=== PATIENT | female | born 1990 | race Caucasian/White ===

== ENCOUNTER 2016-09-01 13:23 | Observation (INO) | payer SELFPAY ==
[2016-09-01] MEDS ORDERED: NS 0.9% 1000 ML* 1,000 ML IV ONE (14:26)
[2016-09-01 14:46] LABS: Hematocrit 42 % (35-47); Hemoglobin 13.6 g/dl (12.0-16.0); Mean Corpuscular HGB Conc 33 g/dl (31-36); Mean Corpuscular Hemoglobin 32 pg (27-31); Mean Corpuscular Volume 98 fL (80-97); Mean Platelet Volume 8 um3 (7.4-10.4); Red Blood Count 4.27 10^6/ul (4.0-5.4); Red Cell Distribution Width 13 % (10.5-15); White Blood Count 7.8 10^3/ul (3.5-10.8)
[2016-09-01 15:05] LABS: Anion Gap 7 mmol/L (2-11); BUN/Creatinine Ratio 17.3 (8-20); Blood Urea Nitrogen 19 mg/dL (6-24); CO2 Carbon Dioxide 26 mmol/L (22-32); Chloride 104 mmol/L (101-111); EGFR Non-African American 59.6 (>60); Glucose 100 mg/dL (70-100); Potassium 3.9 mmol/L (3.5-5.0); Sodium 137 mmol/L (133-145)
[2016-09-01 15:06] LABS: ALT 13 U/L (7-52); AST 20 U/L (13-39); Albumin 4.3 g/dL (3.2-5.2); Alkaline Phosphatase 35 U/L (34-104); Calcium 9.5 mg/dL (8.6-10.3); EGFR African American 76.6 (>60); Globulin 2.9 g/dL (2-4); Magnesium 2.1 mg/dL (1.9-2.7); Total Protein 7.2 g/dL (6.4-8.9)
[2016-09-01 15:21] LABS: TSH (Thyroid Stimulating Horm) 1.97 mcIU/mL (0.34-5.60)
--- NOTE | 2016-09-01 16:52 | RAD ---
Indication: Headaches and dizziness. Image sequences: Sagittal and axial T1, axial T2, FLAIR, diffusion and susceptibility weighted images of the brain were obtained. Ventricular structures are midline. No midline shift is noted. The extra-axial spaces are unremarkable. There is no evidence of intracranial mass or hemorrhage. No other high or low signal lesions are identified. Diffusion-weighted images demonstrates no restriction of diffusion. The paranasal sinuses are otherwise unremarkable. On the T1 and T2 FLAIR images there is increased signal in the right transverse sinus. This is consistent with thrombosis of the right transverse sinus. Normal flow voids are noted in the left transverse sinus as well as the sagittal sinus. Paranasal sinuses are otherwise unremarkable. IMPRESSION: Increased signal is noted in the right transverse sinus consistent with thrombosis of the right transverse sinus. No intracranial lesion is otherwise identified.
[2016-09-01] MEDS ORDERED: Ondansetron INJ* 2 MG/ML VIAL IV PRN (17:29)
[2016-09-01] MEDS ORDERED: Acetaminophen TAB* 325 MG PO PRN (17:29)
[2016-09-01] MEDS ORDERED: NS 0.9% 1000 ML* 1,000 ML IV SCH (17:30)
[2016-09-01] MEDS ORDERED: Iodixanol* (CONTRAST) 320 MG/ML 100 ML SDV IV ONE (17:31)
[2016-09-01] MEDS: Enoxaparin(*) 80 MG/0.8 ML SYR SUBCUT SCH (17:38)
--- NOTE | 2016-09-01 17:40 | ED ---
Dionne Rodriguez Alok, scribed for Soledad Cruz MD on 09/01/16 at 1432 . Headache - HPI Summary HPI Summary: 26F presents to the ED for ESTEVEZ accompanied by dizziness. Pt states that 2 weeks ago she felt a severe temporal ESTEVEZ constant for 2 days before growing milder. She then states she began to feel dizziness like a room-spinning sensation constantly for the week before improving. Pt states her dizziness did not worsen with any behavior and improved with movement. Pt notes taking a muscle relaxer one week ago to try and alleviate her ESTEVEZ. Pt also notes a period of left arm weakness yesterday which felt like muscle strain lasting 10 hours. Pt states that her ESTEVEZ was accompanied by neck pain and that her dizziness was accompanied by ear fullness. Pt denies diplopia, dysphagia, expressive aphasia, or numbness. Pt denies fever, nausea or vomiting. Pt takes BCP. - History Of Current Complaint Chief Complaint: EDHeadache Stated Complaint: HEADACHE,DIZZINESS Time Seen by Provider: 09/01/16 14:02 Hx Obtained From: Patient Onset/Duration: Started weeks ago, Resolved Initially Headache Was: Moderate Currently Pain Is: Mild Timing: Constant Location of Headache: Temporal Radiates to: Neck Aggravating Factor: Nothing Allevating Factors: Other (Noted In Comments) - Movement Associated Signs And Symptoms: Dizziness, Neck Pain - Allergies/Home Medications Allergies/Adverse Reactions: Allergies Allergy/AdvReac Type Severity Reaction Status Date / Time No Known Allergies Allergy Verified 09/01/16 14:08 Home Medications: Home Medications NK [No Home Medications Reported] 09/01/16 [History Confirmed 09/01/16] PMH/Surg Hx/FS Hx/Imm Hx Endocrine/Hematology History: Denies: Hx Diabetes Cardiovascular History: Denies: Hx Hypertension Infectious Disease History: No Infectious Disease History: Denies: Traveled Outside the [place] in Last 30 Days - Family History Known Family History: Positive: Other - No - aneurysm - Social History Occupation: Student Alcohol Use: None Substance Use Type: Reports: None Smoking Status (MU): Never Smoked Tobacco Review of Systems Negative: Fever Negative: Diplopia Positive: Other - ear fullness Negative: Vomiting, Nausea Neurological: Other - Dizziness Positive: Headache. Negative: Numbness, Slurred Speech All Other Systems Reviewed And Are Negative: Yes Physical Exam Triage Information Reviewed: Yes Vital Signs On Initial Exam: Initial Vitals Temp Pulse Resp BP Pulse Ox 99.1 F 70 18 130/90 100 09/01/16 13:47 09/01/16 13:47 09/01/16 13:47 09/01/16 13:47 09/01/16 13:47 Vital Signs Reviewed: Yes Appearance: Positive: Well-Appearing, No Pain Distress Skin: Positive: Warm, Skin Color Reflects Adequate Perfusion, Dry Eyes: Positive: EOMI, PA ENT: Positive: Pharynx normal, TMs normal Neck: Positive: Supple, Nontender Respiratory/Lung Sounds: Positive: Clear to Auscultation, Breath Sounds Present. Negative: Rales, Rhonchi, Wheezes Cardiovascular: Positive: RRR, Other - no gallop. Negative: Murmur, Rub Abdomen Description: Positive: Nontender, Soft, Other: - no rebound. Negative: Distended, Guarding Bowel Sounds: Positive: Present Musculoskeletal: Positive: Strength/ROM Intact. Negative: Edema Left, Edema Right Neurological: Positive: Sensory/Motor Intact, Alert, Oriented to Person Place, Time, CN Intact II-III, Other - NIH Stroke Scale - 0 Psychiatric: Positive: Affect/Mood Appropriate - Neptune Coma Scale Coma Scale Total: 15 Diagnostics - Vital Signs Vital Signs Temp Pulse Resp BP Pulse Ox 09/01/16 14:07 73 99 09/01/16 14:06 99.1 F 70 18 140/94 100 09/01/16 13:47 99.1 F 70 18 130/90 100 - Laboratory Lab Results: Lab Results 09/01/16 09/01/16 09/01/16 Range/Units 14:35 14:35 14:35 WBC 7.8 (3.5-10.8) 10^3/ul RBC 4.27 (4.0-5.4) 10^6/ul Hgb 13.6 (12.0-16.0) g/dl Hct 42 (35-47) % MCV 98 H (80-97) fL MCH 32 H (27-31) pg MCHC 33 (31-36) g/dl RDW 13 (10.5-15) % Plt Count 243 (150-450) 10^3/ul MPV 8 (7.4-10.4) um3 Neut % (Auto) 63.4 (38-83) % Lymph % (Auto) 29.0 (25-47) % [place] % (Auto) 5.9 (1-9) % Eos % (Auto) 0.9 (0-6) % Baso % (Auto) 0.8 (0-2) % Absolute Neuts (auto) 4.9 (1.5-7.7) 10^3/ul Absolute Lymphs (auto) 2.3 (1.0-4.8) 10^3/ul Absolute Monos (auto) 0.5 (0-0.8) 10^3/ul Absolute Eos (auto) 0.1 (0-0.6) 10^3/ul Absolute Basos (auto) 0.1 (0-0.2) 10^3/ul Absolute Nucleated RBC 0.01 10^3/ul Nucleated RBC % 0.1 Sodium 137 (133-145) mmol/L Potassium 3.9 (3.5-5.0) mmol/L Chloride 104 (101-111) mmol/L Carbon Dioxide 26 (22-32) mmol/L Anion Gap 7 (2-11) mmol/L BUN 19 (6-24) mg/dL Creatinine 1.10 H (0.51-0.95) mg/dL Est GFR ( Amer) 76.6 (>60) Est GFR (Non-Af Amer) 59.6 (>60) BUN/Creatinine Ratio 17.3 (8-20) Glucose 100 (70-100) mg/dL Lactic Acid 0.7 (0.5-2.0) mmol/L Calcium 9.5 (8.6-10.3) mg/dL Magnesium 2.1 (1.9-2.7) mg/dL Total Bilirubin 0.50 (0.2-1.0) mg/dL AST 20 (13-39) U/L ALT 13 (7-52) U/L Alkaline Phosphatase 35 (34-104) U/L Troponin I 0.00 (<0.04) ng/mL Total Protein 7.2 (6.4-8.9) g/dL Albumin 4.3 (3.2-5.2) g/dL Globulin 2.9 (2-4) g/dL Albumin/Globulin Ratio 1.5 (1-3) TSH 1.97 (0.34-5.60) mcIU/mL Beta HCG, Quant < 0.60 mIU/mL Result Diagrams: 09/01/16 14:35 09/01/16 14:35 Lab Statement: Any lab studies that have been ordered have been reviewed, and results considered in the medical decision making process. - Radiology Brain MRI Xray Interpretation: Positive (See Comments) - IMPRESSION: Increased signal is noted in the right transverse sinus consistent with thrombosis of the right transverse sinus. No intracranial lesion is otherwise identified. Radiology Interpretation Completed By: Radiologist - EKG 1431 Cardiac Rate: NL - 66 bpm EKG Rhythm: Sinus Rhythm Headache Course/Dx - Course Assessment/Plan: Discussed patient care with Dr. Paiz and Dr. Dunlap ( Hospitalist) @ 0305 - [place] [facility] Pt does not have intact primary care coverage, translation phone being brought down for both the specialist and the admitting doc to discuss better the etiology of the diagnosis. - Diagnoses Provider Diagnoses: Cerebral venous sinus thrombosis, acute - Physician Notifications Discussed Care Of Patient With: Nati Yeh - Recommends MRI Time Discussed With Above Provider: 14:32 Discharge - Discharge Plan Condition: Stable Disposition: ADMITTED TO [facility] Referrals: No Primary Care Phys,NOPCP [Primary Care Provider] - The documentation as recorded by the Dionne stratton Alok accurately reflects the service I personally performed and the decisions made by me, Soledad Cruz MD.
[2016-09-01] MEDS ORDERED: Cyclobenzaprine TAB* 10 MG PO PRN (18:16)
--- NOTE | 2016-09-01 20:22 | RAD ---
Indication: Evaluate for recanalization of transverse sinus thrombosis. Contrast: Administered 59.8 ml of VISAPAQUE 320 mgi/ml CT venography was performed in the axial plane. Coronal, sagittal and 3-D reconstructive images were obtained. The sagittal sinus is patent. No filling defect is noted. The straight sinus and vein of Francisco are also patent. The left transverse sinus is patent and is unremarkable. There is a filling defect in the right transverse sinus consistent with thrombosis of the right transverse sinus extending from the torcula to the proximal internal jugular vein. A small amount of peripheral flow is noted. IMPRESSION: FILLING DEFECT IN THE RIGHT TRANSVERSE SINUS EXTENDING TO THE RIGHT PROXIMAL INTERNAL JUGULAR VEIN WITH PERIPHERAL FLOW NOTED.
--- NOTE | 2016-09-01 23:55 | HP ---
CC: [facility] * ADMISSION HISTORY AND PHYSICAL: DATE OF ADMISSION: 09/01/16 PRIMARY CARE PROVIDER: [facility] PROVIDER: Beto Ruiz NP ATTENDING PHYSICIAN: Dr. Andi Dunlap * (as dictated by Beto Ruiz NP) . CONSULTING PHYSICIAN: Dr. Krupa Paiz, Neurology. CHIEF COMPLAINT: Headache. 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 The patient states that approximately 2 weeks ago, the headache started and she remembers 2 distinct episodes. The headaches last for approximately 20 minutes each time and are described as a pressure "on my head." After the headaches, she reports some dizziness, which she describes as the room spinning. She also reports some accompanying tense neck muscles. These continued over the past week, though not as strong as the initial headache, each time lasting for about 20 to 30 minutes with no identifying pattern or triggers. She has been treating her headache with a medication she brought [id number] in [place] called Dipirona, which she states did help with the severity of her headache. She has also been taking a medication that has a combination of diclofenac, paracetamol , carisoprodol, and caffeine, also bought [id number] in [place]. She denies any double vision, no changes to her vision. She denies any recent fevers or chills, cold or flu symptoms. She denies any chest pain, palpitations , shortness of breath, or cough. She denies abdominal pain, nausea, vomiting, diarrhea, or dysuria. She does report some ear fullness, mostly on the right. The patient has no previous history of headaches expect for 10 years ago when she states that she had been diagnosed with astigmatism, which resolved when she started wearing glasses. She has no previous history of blood clots. She has one family member who may have had a blood clot in her leg. She denies ever being . PAST MEDICAL HISTORY: The patient denies. MEDICATIONS: Ndar-eru-oyqchug Dipirona and over the counter medications as previously mentioned. The patient also takes an oral contraceptive that she has been taking for 6 years. ALLERGIES: No known allergies. FAMILY HISTORY: She reports her grandmother who had a history of a blood clot in her leg "when she got older," age unknown. SOCIAL HISTORY: The patient denies any tobacco, alcohol, or illicit drug use. She states that she exercises daily and lifts weights. 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 She is here from [place] and has been here since May and will be here over the next year. 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 She has a friend, Cullen, who is her emergency contact and surrogate decision maker. Cullen can be reached at [phone]. REVIEW OF SYSTEMS: As per HPI. PHYSICAL EXAMINATION GENERAL: Ms. Swann is a young, well-appearing, well-developed, well-nourished female who is sitting up in the ED stretcher, in no acute distress. VITAL SIGNS: Temperature 99.1, heart rate 66, respiratory rate 16, blood pressure 139/86, and O2 saturation is 100% on room air. HEENT: Head is atraumatic and normocephalic. Face is symmetrical. Pupils are equal, round, and reactive to light. Sclerae are anicteric. External ears and nose are normal. Oral mucosa appears moist. NECK: Supple. Has full range of motion. No lymphadenopathy appreciated. No carotid bruits auscultated. RESPIRATORY: Lungs are clear to auscultation. No accessory muscle use is noted. CARDIAC: S1, S2 heart sounds. Regular rate and rhythm. No murmurs, rubs, or gallops. The patient does not have any peripheral edema. Distal pulses are 2+. ABDOMEN: Soft, nontender, nondistended. Bowel sounds present in all 4 quadrants. MUSCULOSKELETAL: The patient has no clubbing or cyanosis. She has full range of motion. SKIN: Appears grossly intact. NEUROLOGIC: Cranial nerves II through XII are intact. The patient is able to move all extremities. No focal weakness or deficits noted. Strength and pillowcase folder are equal bilaterally. Sensation is intact to light touch and pinprick to the upper and lower extremities. No pronator drift is noted. The patient is able to perform rapid hand motions. [id number]-gp-[id number] and jefp-rk-jqqo activity is within normal limits. PSYCH: She is alert and oriented x3. Affect is appropriate. DIAGNOSTIC STUDIES/LAB DATA: CBC: WBC 7.8, hemoglobin 13.6, hematocrit 42, platelet count 243. CMP: Sodium 137, potassium 3.9, chloride 104, carbon dioxide 26, BUN 19, creatinine 1.10, glucose 100, lactic acid 0.7, calcium 9.5. Magnesium 2.1. Total bilirubin 0.5, AST 20, ALT 13, alk phos 35. Troponin 0.00. Total protein 7.2. TSH 1.97. Beta-hCG is negative. The patient's MRI of the brain showed concern for increased signal is noted in the right transverse sinus consistent with thrombosis of the right transverse sinus. No intracranial lesion is otherwise identified. ASSESSMENT AND PLAN: Ms. Swann is a 26-year-old female with a history of oral contraceptive use x6 years, who presents today with concern for a right transverse sinus thrombosis. She will be admitted to the medicine floor. Plan is as follows: 1. Right transverse sinus thrombosis. The patient has been seen in consultation by Neurology. She is also going to undergo a CTA with venous phase , which is pending. She will be started on b.i.d. Lovenox, which she will most likely have to continue as an outpatient. Other options may include warfarin; however, it may be beneficial to touch base with Hematology to see if there are other agents that might be useful for the patient, otherwise, she may have to continue on Lovenox. We will continue neurological checks and keep the patient well hydrated. The patient has been advised to stop her oral contraceptives as this may have likely caused the clot that is seen on her MRI. There was also concern for potential hypercoagulability in the patient's family history. We will send for a hypercoagulable workup per Neurology. We will continue p.r.n. pain medications of acetaminophen and Flexeril as well as Percocet for the patient for her headache. Continue to monitor her progress. 2. Acute kidney injury. Suspect dehydration. The patient does have a mildly elevated creatinine. The patient does state that she drinks about a liter of caffeine a day and we have advised her that she needs to decrease her caffeine use. She has actually been advised to stop using caffeine, but at the very least, to decrease it down to at least 1 cup a day. She also reports not drinking a variety of balanced fluids besides coffee and caffeinated beverages. We will hydrate her with IV normal saline and follow her creatinine in the morning. 3. Macrocytosis. The patient's H and H is stable. She has mild macrocytosis. We can check a B12 and folate in the morning. 4. FEN. The patient is ordered a regular diet. No caffeine and IV normal saline. 5. DVT prophylaxis. The patient will be fully anticoagulated with b.i.d. Lovenox. 6. Code status. She is a full code. TIME SPENT: Time spent on this admission was approximately 70 minutes, more than half the time was spent [id number] with the patient obtaining history and physical, performing the physical examination, and reviewing the plan of care. Plan of care was also reviewed with my attending, Dr. Dunlap, who is in agreement. [employer] iPad was used via full time staff interpreter number [id number] to assist with this H and P. BETO RUIZ, POST DOCTORAL RESEARCHER [id number]/CPS #: [id number] MAKAYLA
--- NOTE | 2016-09-02 00:03 | CONS ---
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 Una originally started having severe headache, rated 10/ 10 about 10 days ago. This was followed by a week of vertigo, which has improved. She still has a feeling of pinching around the nose and around the mormon region. This occurs while on control. She also enjoys coffee and drinks about a liter of coffee a day. She had been taking a medication, which also has anti-inflammatory as well as caffeine. She has noted that her right ear has felt gastelum than the left. She is presenting to the emergency room for further evaluation. With this constellation of symptoms, she went on to have an MRI of the brain, which showed right transverse sinus thrombosis. PAST MEDICAL HISTORY: Una's past medical history is minimal. She has no clear medical diagnosis. She is not . She is on control. She has had difficulty with headache about 10 years ago in the setting of difficulty with visual accommodation. MEDICATIONS: Includes control; a combination pill that she has been taking p.r.n. of paracetamol, caffeine, carisoprodol and diclofenac. She has also had another antipyretic anti-inflammatory from [place]. FAMILY HISTORY: Does not include any history of increased miscarriages, clots. There is a history of leg clot in grandmother who is elderly. SOCIAL HISTORY: Una is originally from [place]. 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 She does not smoke. She does not drink alcohol. She does drink quite a bit of caffeine about a liter a day. She exercises regularly. She denies any illicit drug use. REVIEW OF SYSTEMS: There has been no double vision, change in vision. She has had headache as mentioned above. There has been fullness of the ear on the right hand side. No difficulty speaking or swallowing. She denies any chest pain, chest pressure, palpitations, shortness of breath. There has been no new numbness or weakness in her arms or legs, change in coordination or gait, change in mood or cognition. There have been no rashes. PHYSICAL EXAM: Una's most recent vitals include a blood pressure of 139/86 , pulse of 64, respiratory rate 18, temperature 98.9 degrees Fahrenheit. She had a regular cardiac rhythm. Her lungs were clear to auscultation. There was no evidence of peripheral edema. She had good peripheral pulses. No rash or petechiae were noted. She was awake, alert, oriented, had normal language function, adequate fund of knowledge. Her pupils were equal and responsive to light from 4 to 3 mm. Her fundi were flat with no evidence of papilledema. She had full extraocular movements with no nystagmus. Full dubon to confrontation. Her facial expression, sensation and hearing were equal. Palate was upgoing. Tongue was midline. Sternocleidomastoid and trapezius were 5/5 in strength. There was normal bulk and tone. No pronator drift. Full strength in the upper and lower extremities with normal finger to nose and heel to boss movements. Vibration sensation was decreased by about 10 seconds at the large toes. Proprioception was intact. There was no asymmetries to pinprick, cold or light touch. She had no dysmetria with finger to nose and heel to obss movements. Her reflexes were 2+ and symmetric in the upper and lower extremities. Her toes were flexor response. She had a negative Romberg. She could walk on her heels and her toes. She performed tandem gait forward and backward without difficulty. DIAGNOSTIC STUDIES AND LAB DATA: Includes MRI of the brain, which shows a right transverse sinus thrombosis. There was no evidence of infarct or bleed in the parenchyma. This film was reviewed directly. Laboratory tests include a metabolic panel, which shows an elevated creatinine at 1.1. Her GFR was 59.6 with a BUN and creatinine ratio of 17.3. Her beta-hCG was negative. Her TSH was within normal limits and liver function tests were normal. Her CBC did show an elevated MCV and MCH at 98 and 32 respectively and otherwise was normal. IMPRESSION: A 26-year-old woman with cerebral venous thrombosis in the right transverse sinus with a severe headache about 10 days ago followed by vertigo. She does have some residual headache, but is otherwise nonsymptomatic and her exam is negative at this time. Would admit her to hospital, start her on anticoagulation, hydrate and get a CT venogram to evaluate for recanalization. We discussed the potential of use of low molecular weight heparin dose by weight versus heparin. She will need ongoing anticoagulation until there is recanalization. At this point, she needs to stop control since it is her main risk factor for clotting. She needs to stop her caffeine as this can lead to dehydration. Advise was given to increase water intake. We will check hypercoagulable workup including factor V Leiden, factor II prothrombin, antithrombin III, protein C and S activity, lupus anticoagulant, anticardiolipin antibody. Case was discussed with admitting hospitalist. I will continue to follow with you. [id number]/[facility] #: [id number] MAKAYLA
[2016-09-02] MEDS: Enoxaparin(*) 80 MG/0.8 ML SYR SUBCUT SCH ×2 (05:51→18:15)
[2016-09-02 06:16] LABS: Hematocrit 37 % (35-47); Hemoglobin 12.3 g/dl (12.0-16.0); Mean Corpuscular HGB Conc 33 g/dl (31-36); Mean Corpuscular Hemoglobin 32 pg (27-31); Mean Corpuscular Volume 98 fL (80-97); Mean Platelet Volume 8 um3 (7.4-10.4); Red Blood Count 3.83 10^6/ul (4.0-5.4); Red Cell Distribution Width 13 % (10.5-15); White Blood Count 5.8 10^3/ul (3.5-10.8)
[2016-09-02 06:30] LABS: BUN/Creatinine Ratio 12.7 (8-20); EGFR African American 76.6 (>60); EGFR Non-African American 59.6 (>60)
[2016-09-02 07:02] LABS: Folate 16.09 ng/mL (>3.99)
--- NOTE | 2016-09-02 09:52 | PN ---
Subjective Date of Service: 09/02/16 Interval History: This is a previously healthy 26 yo female who presented with complaints of a severe ESTEVEZ. MRI demonstrated a clot within the R transverse sinus and venous imaging shows the clot extends to the proximal IJ. She is still complaining of a ESTEVEZ this am without significant change in severity since admission. No associated n/v. Lovenox initiated. Objective Active Medications: Acetaminophen (Tylenol Tab*) 650 mg PO Q4H PRN PRN Reason: FEVER/PAIN Last Admin: 09/01/16 21:07 Dose: 650 mg Cyclobenzaprine HCl (Flexeril Tab*) 10 mg PO TID PRN PRN Reason: SPASMS - MUSCLE Enoxaparin Sodium (Lovenox(*)) 70 mg SUBCUT Q12H [facility] Last Admin: 09/02/16 05:51 Dose: 70 mg Ondansetron HCl (Zofran Inj*) 4 mg IV Q6H PRN PRN Reason: NAUSEA/VOMITING Oxycodone/Acetaminophen (Percocet 5/325 Tab*) 1 tab PO Q4H PRN PRN Reason: Pain Warfarin Sodium (Coumadin Tab(*)) 5 mg PO DAILY@1700 SILVER PRN Reason: Protocol Vital Signs: Temp Pulse Resp BP Pulse Ox 98.1 F 66 16 101/68 100 09/02/16 07:20 09/02/16 07:20 09/02/16 07:20 09/02/16 07:20 09/02/16 07:20 Oxygen Devices in Use Now: None Appearance: Well appearing young female in NAD Respiratory: Symmetrical Chest Expansion and Respiratory Effort, Clear to Auscultation Cardiovascular: NL Sounds; No Murmurs; No JVD, RRR Abdominal: NL Sounds; No Tenderness; No Distention Extremities: No Edema Skin: No Rash or Ulcers Neurological: Alert and Oriented x 3 Result Diagrams: 09/02/16 05:59 09/02/16 05:59 Additional Lab and Data: . Diagnostic Imaging: MRI brain - R transverse sinus thrombosis CTA head - filling defect from R transverse sinus to R proximal IJ with some peripheral flow Assess/Plan/Problems-Billing Assessment: This is a 26 yo female who was previously healthy who presented with c/o severe ESTEVEZ with sinus venous thrombosis noted on imaging. - Patient Problems (1) Cerebral venous sinus thrombosis, acute Comment: Etiology is not clear Hypercoag w/u is pending at this time, she also has a history consistent with chronic dehydration Started on Lovenox, will plan to bridge to Coumadin She is still quite symptomatic and will require extensive discharge planning, discharge will likely be tomorrow (2) Full code status (3) DVT prophylaxis Comment: Lovenox Status and Disposition: observation. Likely dc tomorrow
[2016-09-02] MEDS: oxyCODONE/Acetamin 5/325 MG* TAB PO PRN ×2 (10:00→16:28)
--- NOTE | 2016-09-02 13:49 | PN ---
Progress Note - Progress Note Date of Service: 09/02/16 SOAP: Subjective: This is a 26 yo female student from [place] 1 year ago that was previously healthy admitted from the ER with severe ESTEVEZ. MRI ordered found a right transverse thrombosis that showed it was extended to the proximal internal jugular vein on head CTA. ESTEVEZ are severe for 20-30 minutes at a time without precipitating events. They have since mildly improved in pain being primarily located behind the eyes and right judaism. She denies any dizziness or problems with balance that were previously present. She denies n/v, hx of blood clots, or changes in vision. Active medications: Acetaminophen (Tylenol Tab*) 650 mg PO Q4H PRN PRN Reason: FEVER/PAIN Last Admin: 09/01/16 21:07 Dose: 650 mg Cyclobenzaprine HCl (Flexeril Tab*) 10 mg PO TID PRN PRN Reason: SPASMS - MUSCLE Enoxaparin Sodium (Lovenox(*)) 70 mg SUBCUT Q12H SILVER Last Admin: 09/02/16 05:51 Dose: 70 mg Ondansetron HCl (Zofran Inj*) 4 mg IV Q6H PRN PRN Reason: NAUSEA/VOMITING Oxycodone/Acetaminophen (Percocet 5/325 Tab*) 1 tab PO Q4H PRN PRN Reason: Pain Last Admin: 09/02/16 10:00 Dose: 1 tab Warfarin Sodium (Coumadin Tab(*)) 5 mg PO DAILY@1700 SILVER PRN Reason: Protocol Allergies Allergy/AdvReac Type Severity Reaction Status Date / Time No Known Allergies Allergy Verified 09/01/16 14:08 Objective: [] Vital Signs: Temp Pulse Resp BP Pulse Ox 99.2 F 62 16 103/62 100 09/02/16 11:47 09/02/16 11:46 09/02/16 12:42 09/02/16 11:46 09/02/16 11:46 General: This is a 26 yo women that is WD, WN, is NAD. Skin: No rashes, ecchymosis, or erythema. HEENT: No areas of trauma, normocephalic, PEERLA, Pharynx and oral mucosa are pink without ulceration/exudates. Heart: RRR, No JVD, S1 and S2 split heard, No murmurs, rubs, or gallops. Lungs: Chest is symmetric, AP:L 2:1, no wheezes, crackles, or rhonchi. Abdomen: Soft and nontender. Extremities: Pulses 2+ bilaterally without edema. Neuro: EOMI, Finger to nose intact bilaterally, sensation intact throughout all dermatones bilaterally, proximal/distal, side to side. Strength 5/5 throughout. No Patient able to make faces. Alert and oriented X3. WBC 5.8 10^3/ul (3.5-10.8) 09/02/16 05:59 RBC 3.83 10^6/ul (4.0-5.4) L 09/02/16 05:59 Hgb 12.3 g/dl (12.0-16.0) 09/02/16 05:59 Hct 37 % (35-47) 09/02/16 05:59 MCV 98 fL (80-97) H 09/02/16 05:59 MCH 32 pg (27-31) H 09/02/16 05:59 MCHC 33 g/dl (31-36) 09/02/16 05:59 RDW 13 % (10.5-15) 09/02/16 05:59 Plt Count 201 10^3/ul (150-450) 09/02/16 05:59 MPV 8 um3 (7.4-10.4) 09/02/16 05:59 Neut % (Auto) 36.7 % (38-83) L 09/02/16 05:59 Lymph % (Auto) 51.5 % (25-47) H 09/02/16 05:59 Boyd % (Auto) 8.0 % (1-9) 09/02/16 05:59 Eos % (Auto) 2.7 % (0-6) 09/02/16 05:59 Baso % (Auto) 1.1 % (0-2) 09/02/16 05:59 Absolute Neuts (auto) 2.1 10^3/ul (1.5-7.7) 09/02/16 05:59 Absolute Lymphs (auto) 3.0 10^3/ul (1.0-4.8) 09/02/16 05:59 Absolute Monos (auto) 0.5 10^3/ul (0-0.8) 09/02/16 05:59 Absolute Eos (auto) 0.2 10^3/ul (0-0.6) 09/02/16 05:59 Absolute Basos (auto) 0.1 10^3/ul (0-0.2) 09/02/16 05:59 Absolute Nucleated RBC 0.01 10^3/ul 09/02/16 05:59 Nucleated RBC % 0.1 09/02/16 05:59 INR (Anticoag Therapy) 0.92 (0.89-1.11) 09/02/16 05:59 Sodium 136 mmol/L (133-145) 09/02/16 05:59 Potassium 4.0 mmol/L (3.5-5.0) 09/02/16 05:59 Chloride 109 mmol/L (101-111) 09/02/16 05:59 Carbon Dioxide 26 mmol/L (22-32) 09/02/16 05:59 Anion Gap 1 mmol/L (2-11) L 09/02/16 05:59 BUN 14 mg/dL (6-24) 09/02/16 05:59 Creatinine 1.10 mg/dL (0.51-0.95) H 09/02/16 05:59 Est GFR ( Amer) 76.6 (>60) 09/02/16 05:59 Est GFR (Non-Af Amer) 59.6 (>60) 09/02/16 05:59 BUN/Creatinine Ratio 12.7 (8-20) 09/02/16 05:59 Glucose 87 mg/dL (70-100) 09/02/16 05:59 Lactic Acid 0.7 mmol/L (0.5-2.0) 09/01/16 14:35 Calcium 9.0 mg/dL (8.6-10.3) 09/02/16 05:59 Magnesium 2.1 mg/dL (1.9-2.7) 09/01/16 14:35 Total Bilirubin 0.50 mg/dL (0.2-1.0) 09/01/16 14:35 AST 20 U/L (13-39) 09/01/16 14:35 ALT 13 U/L (7-52) 09/01/16 14:35 Alkaline Phosphatase 35 U/L (34-104) 09/01/16 14:35 Troponin I 0.00 ng/mL (<0.04) 09/01/16 14:35 Total Protein 7.2 g/dL (6.4-8.9) 09/01/16 14:35 Albumin 4.3 g/dL (3.2-5.2) 09/01/16 14:35 Globulin 2.9 g/dL (2-4) 09/01/16 14:35 Albumin/Globulin Ratio 1.5 (1-3) 09/01/16 14:35 Vitamin B12 222 pg/mL (180-914) 09/02/16 05:59 Folate 16.09 ng/mL (>3.99) 09/02/16 05:59 TSH 1.97 mcIU/mL (0.34-5.60) 09/01/16 14:35 Beta HCG, Quant < 0.60 mIU/mL 09/01/16 14:35 Diagnostics: MRI: increased signal of right transverse sinus consistent with thrombosis of right transverse sinus. Head CTA: Filling defect in right sinus that extends to right proximal internal jugular vein with peripheral flow noted. Assessment/Plan: This is a 26 yo female student from [place] 1 year ago that was previously healthy admitted from the ER with severe ESTEVEZ. MRI ordered found a right transverse thrombosis that showed it was extended to the proximal internal jugular vein on head CTA 1) Right transverse sinus thrombosis: Cont Heparin therapy with anticipated bridge to coumadin for anticoagulation for at least 3 months post. Discharge planning is extensive with following patient on INR. She is a [employer] [employer] student and planning for student health to follow up with her case for INR and coagulation panel. She has international insurance but plans on paying for medications out of pocket. Exact causation of clot still unclear. Stopped oral contraceptive. Planning for discharge for tomorrow. 2) DVT Prophylaxis: SQ heparin 3) Code status: Full code Status and disposition: Planning to discharge home tomorrow to apartment in [place] with her current roommate.
--- NOTE | 2016-09-02 14:14 | PN ---
FOLLOW-UP/PROGRESS NOTE: DATE: 09/02/16 HISTORY OF PRESENT ILLNESS: Una Swann is a 26-year-old admitted to the hospital for right transverse sinus thrombosis in the setting of use of control. She had previously had severe headaches and vertigo, which have improved and now has residual headache. Last night, she had a CTA of the brain, which not only confirmed the transverse sinus thrombosis, but also confirmed lack of flow in a significant segment. Overnight, there has been no new symptoms. She denies any loss of vision, double vision, new numbness or weakness in arms or legs. Her headache remains the same. PHYSICAL EXAMINATION: On examination, her temperature was 98.1 degrees Fahrenheit, her pulse was 66, respiratory rate was 16, saturation was 100%, blood pressure was 101/68. She had regular cardiac rhythm. Her lungs were clear to auscultation. She is awake, alert and articulate. She had normal language function, adequate fund of knowledge. Extraocular movements with no nystagmus. She had full dubon to confrontation. Her facial expression was symmetric. There was no dysarthria. There was normal bulk and tone. No pronator drift. Full strength in upper and lower extremities with normal finger -to-nose and [id number] movements. She denied any sensory changes. DATA: Includes CBC with a normal white count. Hemoglobin and hematocrit and platelets. Her MCV and MCH continued to be elevated. Her B12 was noted to 222. Her metabolic panel revealed elevated creatinine of 1.0. TSH was 1.97. Her folate was 16. Her CTA of the brain showed right transverse sinus thrombosis. The film was reviewed and discussed with radiology, although flow was noted on either side of the thrombosis, there is an area with lack of flow. The filling defect does extend to the proximal right internal jugular vein. IMPRESSION: Una Swann is a 26-year-old healthy young woman on control, who presented after severe headache followed by vertigo and then persistent headaches to the emergency room. She has been started on Lovenox and will need to be converted to oral anticoagulation. Estimated duration will be approximately 6 months, but will depend recannulization of the sinus. As an outpatient in 3- 6 months depending on symptoms, we will repeat the CTA to determine ability to change Coumadin to aspirin. At this point, she is off control. We talked about the fact that she will have to avoid all hormonal types of control in the future. At this point, I have asked her to avoid caffeine and work on hydration. We talked about risk factors for further clotting and the importance of taking an anticoagulant and keeping the volume of fluid that are non-dehydrating. Hypercoagulable workup is pending to look if there is any causes for her to clot blood more than other people. She will need a nutritional inputs regarding diet while on Coumadin. Education was provided at the bedside today. She will also need primary care to follow up with her anticoagulation. 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 Hospitalist team plans to contact again prior to discharge tomorrow. I will suggest followup with me in 4 to 8 weeks after discharge to discuss hypercoagulable workup and ensure stability. Of note, we talked about symptoms of clot and concerns that would be raised if she had increasing headache, double vision or focal neurological symptoms including, but no limited to change in vision, numbness or weakness in arms or legs, change in coordination or gait. TIME SPENT: 25 minutes was spent in direct [id number] patient care, over 50% of the time was spent on education and counseling regarding above issues. All questions were answered. [id number]/[facility] #: [id number] MAKAYLA
[2016-09-02] MEDS ORDERED: Warfarin TAB(*) 5 MG PO SCH (17:00)
[2016-09-03] MEDS: Enoxaparin(*) 80 MG/0.8 ML SYR SUBCUT SCH (06:20)
[2016-09-03 08:16] LABS: BUN/Creatinine Ratio 11.8 (8-20); Calcium 9.3 mg/dL (8.6-10.3); EGFR African American 83.6 (>60); Potassium 3.9 mmol/L (3.5-5.0)
--- NOTE | 2016-09-03 11:38 | DS ---
DOA: 09/01/216 DOD: 09/03/2016 Care Team: Admitting provider: Dr. Gregory Dunlap Attending provider: Jed Moss PA-C Supervising physician: Dr. Francine Anton Neurologist: Dr. Krupa Paiz Discharge provider: REBEKAH De La Torre Discharge diagnosis: 1) Right transverse sinus thrombosis: Extends to the right proximal internal jugular vein. 2) Acute kidney injury Secondary diagnosis: Discharge medications: Lovenox 70 mg SQ Q12 hrs Coumadin 5 mg PO daily Changes to home medications: Start Lovenox Start Coumadin Stop Oral contraceptive Imaging: MRI: increased signal of right transverse sinus consistent with thrombosis of right transverse sinus. Head CTA: Filling defect in right sinus that extends to right proximal internal jugular vein with peripheral flow noted. EKG: Sinus Rhythm with no axis deviation. Hospital course: This is a 26 yo female [place] student from [place] as of one year ago, that was previously healthy admitted from the ER with severe ESTEVEZ. Headaches are severe primarily located behind the eyes and right evangelical for 20-30 minutes at a time without precipitating events that started approximately 2 weeks ago. She reported episodes of dizziness with associated neck tensity without relief from over the counter [place] medication, Dipirona. With exception of elevated creatinine at 1.10, her CBC and chemistries were within normal limits including a negative test. KAVYA was presumed to be a prerenal cause and she states she frequently works out and drinks 1L of coffee a day, patient was likely dehydrated. MRI ordered found a right transverse thrombosis that showed it was extended to the proximal internal jugular vein on head CTA. Neurology consultation was made with Dr. Krupa Burnham to investigate possible etiology behind her thrombosis. She denies every having a clot prior to this admission. Given her dehydration status and use of control are risk factors for increased thrombosis. She was immediately started on Lovenox SQ and IVF with hypercoaguable work up studies of antithrombin III, Factor V Leiden, Protein C/S, lupus antibody, anticardiolipin antibody, and lyme serology are still pending with necessary follow up. Ms. Robles continued to improve symptomatically with 4/10 pain ESTEVEZ without any more dizziness or problems with balance since admission. She was started on Coumadin for anticipating bridge and INR was monitored at 0.89 on day of discharge. Some improvement with IVF with Creatinine to down to 1.02 with WNL vitals. Follow up plan/disposition: She is to be discharge to her apartment in [place] with extensive follow up with [facility] to help bridge Lovenox to Coumadin. INR needs monitoring 2-3x/week with continued Lovenox until INR exceeds >2. From there patient INR measurements are can gradually decrease to 1x/every 1-2 weeks and Coumadin can be adjusted as necessary. Duration of treatment of Coumadin will fluctuate anywhere from 3-6 months depending on results of repeat head CTA at 3 months with follow up from neurology.
[2016-09-03 12:02] VITALS: BP 114/72
--- NOTE | 2016-09-03 13:19 | DS ---
CC: Dr. Martinez; Dr. Paiz * DISCHARGE SUMMARY: DATE OF ADMISSION: 09/01/16 DATE OF DISCHARGE: 09/03/16 PRIMARY CARE PROVIDER: To be established is Dr. Martinez at [facility]. CONSULTING NEUROLOGIST: Dr. Paiz. DISCHARGING PROVIDER: DEBBIE Boyle. SUPERVISING PHYSICIAN: Dr. Francine Anton.* (DICTATED BY DEBBIE BOYLE) PRIMARY DISCHARGE DIAGNOSIS: Right transverse venous sinus thrombosis. SECONDARY DISCHARGE DIAGNOSIS: None. DISCHARGE MEDICATIONS: 1. Lovenox 70 mg subcu twice daily. 2. Coumadin 5 mg p.o. daily. Medication changes: 1. Discontinue control. 2. Lovenox and Coumadin as listed above with instructions to continue Lovenox until Coumadin is therapeutic. HOSPITAL IMAGING: Brain MRI demonstrates increased signal in the right transverse sinus consistent with thrombosis of the right transverse sinus. No intracranial lesion is otherwise identified. CTA of the head shows a filling defect in the right transverse sinus extending to the right proximal internal jugular vein with a small amount of peripheral flow noted. 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 The patient has been having intermittent headaches for the last 2 weeks and her symptoms became more severe and associated with dizziness, which prompted her to seek care in the emergency department. The patient had been treating her headaches with over -the- counter medications without significant improvement. She denied any associated visual symptoms. No numbness, tingling or associated weakness. Initial MRI of the brain demonstrated a right transverse venous sinus thrombosis. The patient denies any personal history of clotting and it sounds like her grandmother may have sustained a DVT but at much a later age. There is no other family history suggesting clotting disorders. The patient has been on oral contraceptive pills for the last 6 years and enjoys exercising and spends quite a bit of time in the gym. Addition to that, she drinks a significant amount of coffee and has some caffeinated sodas throughout the day as well. The patient was evaluated by neurologist, Dr. Krupa Paiz, and she was subsequently admitted to the hospital for further treatment and evaluation. The patient was started on full dose Lovenox therapy at a dose of 70 mg subcu twice daily. After approximately 36 hours, the patient noted a significant improvement in her headache symptoms. She had no associated neurologic deficits. Hypercoagulability workup was initiated at the time of admission, but all labs are still pending at the time of discharge. The patient will be bridged to Coumadin from Lovenox. She is still subtherapeutic at the time of discharge with an INR of 0.89. The patient has received specific instructions on how to self-administer Lovenox injection and precautions surrounding Coumadin therapy. DISPOSITION AND FOLLOWUP PLAN: The patient is being discharged to home. She will establish care with [facility] and has an appointment with Dr. Martinez there for next Thursday, which will be the 09/09/16. I plan to personally communicate with Dr. Martinez regarding the complexities of her followup and the details of her hospital admission. The patient has received instructions to discontinue her control, but understands that medications that she is on are teratogenic and would certainly complicate her medical treatment and for that reason she has been advised to use condoms 100% of the time for backup, but nonhormonal control options such as a copper IUD should be considered moving forward. The patient requires close INR monitoring and adjustments of Coumadin dose accordingly and instructions on to when she can discontinue her Lovenox injections. She is asked to please get an INR checked on either Thursday of this week which will be 09/05/16 or on Thursday09/08/16 and to contact [facility] for instructions on appropriate dose adjustment. She has multiple labs pending at the time of discharge which require followup including Lyme serology, phospholipid antibody, antithrombin III activity, cardiolipin, factor V Leiden mutation, homocysteine, lupus anticoagulant, prothrombin mutation, protein C activity and protein S activity. Anticipate that those labs will probably return at least by 09/08/16, and can be reviewed by Dr. Martinez. The patient will also require followup with neurologist Dr. Paiz and she has been established with an appointment for the end of August. The patient will require anticoagulation for at least 3 to 6 months and further outpatient imaging including a repeat CTA dictated by Dr. Paiz will help determine the length of anticoagulation and an appropriate followup. DEBBIE BOYLE [id number]/[facility] #: [id number] [facility] DIVISIONBranden
--- NOTE | 2016-09-03 14:26 | PN ---
PROGRESS NOTE: DATE OF VISIT: 09/03/16 TIME OF VISIT: 09:45 a.m. HISTORY OF PRESENT ILLNESS: Una Swann has been admitted for cerebrovenous thrombosis of the right transverse sinus. Overnight, her headache has improved. There has been no new focal symptoms; no new numbness or weakness of arms or legs, change in vision, double vision. No new headache. PHYSICAL EXAMINATION: Her most recent vitals include a blood pressure of 106/60 , pulse of 67, respiratory rate 16, saturation 100%, and temperature 98.5. She is awake, alert, no apparent distress, sitting on her bed, looking forward to going home. She was articulate. The facial expression was symmetric. MEDICATIONS: MAR was reviewed. IMPRESSION: Una Swann is a 26-year-old who presented with history of headache and vertigo, was found to have a right transverse sinus thrombosis in the setting of control. She has done well with hydration and anticoagulation with Lovenox and the initiation of Coumadin. She is to be discharged today. 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 She was clearly able to reiterate the importance of her being off her hormonal control and using an alternative form of control. She will be following up with [facility] for anticoagulation and hospitalist team is contacting to [facility] to arrange followup appointment as well as ongoing monitoring of Coumadin. The patient has been self-taught Lovenox injections. Hypercoagulable workup is pending and we will review results in her followup visit in 1 month's time at the neurology [facility] office. Re-education was given regarding the importance of hydration. I have asked her to stop drinking caffeine as she was drinking a liter a day in the setting of regularly working out and exercising. Importance of hydration with water was emphasized. Warning signs of further thrombosis or stroke like symptoms were provided. She has been asked to return to the emergency room with any new focal symptoms or severe headache. She is provided the Neurology phone number to call if there are any questions or concerns and she is aware that there is a physician on 24 hours a day. Followup is planned in 1 month's time. TIME SPENT: Fifteen minutes was spent in direct [id number] patient care, over 50% of the time was spent in education and counseling regarding above issues. All questions were answered. Case was discussed with hospitalist team. [id number]/[facility] #: [id number] MAKAYLA
[2016-09-03 22:13] LABS: B garinii/B afzelii PCR Negative (Negative); B mayonii PCR Negative (Negative)
[2016-09-04 14:15] LABS: Protein C Activity 116 % (70 - 150)
[2016-09-04 15:03] LABS: LAC APTT 32 sec (26 - 36); Lac DRVVT Screen Ratio 0.8 ratio (0.0 - 1.1); Prothrombin Time(LAC) 10.9 sec
[2016-09-04 16:16] LABS: Phospholipid Ab IgG < 9.4 GPL; Phospholipid Ab IgM, S < 9.4 MPL
[2016-09-05 17:20] LABS: Factor V Leiden Mutation Negative (Negative); Prothrombin 20210 Mutation Negative (Negative)
== END 2016-09-03 13:10 | disposition home or self-care (01) ==
LOC: ED 13:23 → MED 17:21 → ED 18:32
PROVIDERS: ADMIT Internal Medicine; ATTEND Internal Medicine
DX: G08 Intracranial and intraspinal phlebitis and thrombophlebitis (principal); N17.9 Acute kidney failure, unspecified; D75.89 Other specified diseases of blood and blood-forming organs
CPT/HCPCS: 36415; 70496; 70551; 80048; 80053; 81240; 81241; 82607; 82746; 83090; 83605; 83735; 84443; 84484; 84702; 85025; 85300; 85303; 85306; 85610; 85613; 85730; 86147; 87476; 87798; 93005; 96360; 96372; 99284; A9270-GY; G0378; J1650; Q9967

== ENCOUNTER 2016-09-22 23:46 | Emergency (ER) | payer SELFPAY ==
[2016-09-23] MEDS ORDERED: NS 0.9% 1000 ML* 1,000 ML IV ONE (00:43)
--- NOTE | 2016-09-23 00:49 | ED ---
Abdominal Pain/Female - HPI Summary HPI Summary: 26F presents with pelvic pain that radiates to left flank. She denies any dysuria but admits to frequency and urgency. She denies any vaginal discharge or history of STDs. She denies any n/v/d/c. She denies any one else being sick or eating anything different. She states pain started pelvic and then moved to entire abdomen and then to left flank. She has never had this pain before. She denies any previous abdominal surgeries. She is currently on coumadin for a sinus thrombosis. - History of Current Complaint Chief Complaint: EDAbdPain Stated Complaint: ABD/BACK PAIN Time Seen by Provider: 09/23/16 00:34 Pain Intensity: 4 Allergies/Adverse Reactions: Allergies Allergy/AdvReac Type Severity Reaction Status Date / Time No Known Allergies Allergy Verified 09/01/16 14:08 PMH/Surg Hx/FS Hx/Imm Hx Endocrine/Hematology History: Denies: Hx Diabetes Cardiovascular History: Denies: Hx Hypertension, Hx Pacemaker/ICD History: Denies: Hx Renal Disease Sensory History: Denies: Hx Contacts or Glasses, Hx Hearing Aid Opthamlomology History: Denies: Hx Contacts or Glasses Psychiatric History: Denies: Hx Panic Disorder - Surgical History Surgery Procedure, Year, and Place: breast implants 4 years ago Infectious Disease History: No Infectious Disease History: Denies: Traveled Outside the [place] in Last 30 Days - Family History Known Family History: Positive: Other - No - aneurysm - Social History Alcohol Use: None Substance Use Type: Reports: None Smoking Status (MU): Never Smoked Tobacco Review of Systems Negative: Fever Negative: Chest Pain Negative: Shortness Of Breath Positive: Abdominal Pain. Negative: Vomiting, Diarrhea, Nausea All Other Systems Reviewed And Are Negative: Yes Physical Exam Triage Information Reviewed: Yes Vital Signs On Initial Exam: Initial Vitals Temp Pulse Resp BP Pulse Ox 98.3 F 86 18 162/81 100 09/22/16 23:50 09/22/16 23:50 09/22/16 23:50 09/22/16 23:50 09/22/16 23:50 Vital Signs Reviewed: Yes Appearance: Positive: Well-Appearing Skin: Positive: Warm, Dry Head/Face: Positive: Normal Head/Face Inspection Eyes: Positive: Normal, Conjunctiva Clear ENT: Positive: Normal ENT inspection, Pharynx normal, TMs normal Respiratory/Lung Sounds: Positive: Clear to Auscultation, Breath Sounds Present Cardiovascular: Positive: Normal, RRR Abdomen Description: Positive: Nontender, Soft, CVA Tenderness (L) Bowel Sounds: Positive: Present Diagnostics - Vital Signs Vital Signs Temp Pulse Resp BP Pulse Ox 09/22/16 23:50 98.3 F 86 18 162/81 100 - Laboratory Result Diagrams: 09/23/16 00:50 09/23/16 00:50 Lab Statement: Any lab studies that have been ordered have been reviewed, and results considered in the medical decision making process. - CT abd CT Interpretation: No Acute Changes - no inflammatory proces in abdomen or pelvis CT Interpretation Completed By: Radiologist Abdominal Pain Fem Course/Dx - Course Course Of Treatment: 26F presents with pelvic pain that radiates to left flank. She denies any dysuria but admits to frequency and urgency. She denies any vaginal discharge or history of STDs. She denies any n/v/d/c. She denies any one else being sick or eating anything different. She states pain started pelvic and then moved to entire abdomen and then to left flank. she states food makes the pain worst. She has never had this pain before. on exam abdomen nontender, Pos CVA tenderness left flank. labs wbc normal and crp normal. blood in urine but no sign of UTI in urine. do not suspect mesenteric ischemia as minimal pain at moment, inr has been 2.2. CT normal. told to potential add tums for acid reflex type pain? patient understands and agrees with plan - Diagnoses Differential Diagnosis: Positive: Appendicitis, Ovarian Cyst, , Urinary Tract Infection, Other - pyelonephritis Provider Diagnoses: Abdominal pain Discharge - Discharge Plan Condition: Good Disposition: HOME Patient Education Materials: Abdominal Pain (ED) Referrals: Timoteo Martinez MD [Primary Care Provider] - Additional Instructions: Take Tylenol every 6 hours for pain Try tums when stomach is upset to see if any improvement Follow up with obgyn Return to ED if develop any new or worsening symptoms
[2016-09-23 00:54] LABS: Urine Bacteria Absent (Absent); Urine Bilirubin Negative (Negative); Urine Glucose Negative (Negative); Urine Nitrite Negative (Negative)
[2016-09-23 01:00] LABS: Hematocrit 41 % (35-47); Hemoglobin 13.8 g/dl (12.0-16.0); Mean Corpuscular HGB Conc 33 g/dl (31-36); Mean Corpuscular Hemoglobin 32 pg (27-31); Mean Corpuscular Volume 95 fL (80-97); Mean Platelet Volume 8 um3 (7.4-10.4); Red Blood Count 4.36 10^6/ul (4.0-5.4); Red Cell Distribution Width 13 % (10.5-15); White Blood Count 7.1 10^3/ul (3.5-10.8)
[2016-09-23 01:16] LABS: ALT 38 U/L (7-52); AST 24 U/L (13-39); Albumin 4.3 g/dL (3.2-5.2); Alkaline Phosphatase 41 U/L (34-104); Anion Gap 7 mmol/L (2-11); BUN/Creatinine Ratio 15.9 (8-20); Blood Urea Nitrogen 14 mg/dL (6-24); CO2 Carbon Dioxide 26 mmol/L (22-32); Calcium 9.5 mg/dL (8.6-10.3); Chloride 104 mmol/L (101-111); EGFR African American 99.1 (>60); EGFR Non-African American 77.1 (>60); Globulin 2.5 g/dL (2-4); Glucose 94 mg/dL (70-100); Lipase 25 U/L (11.0-82.0); Potassium 3.6 mmol/L (3.5-5.0); Sodium 137 mmol/L (133-145); Total Protein 6.8 g/dL (6.4-8.9)
[2016-09-23 02:17] VITALS: BP 113/75
--- NOTE | 2016-09-23 08:00 | RAD ---
CLINICAL HISTORY: Left flank pain COMPARISON: None TECHNIQUE: Noncontrast CT examination of the abdomen and pelvis from the lung bases through the initial tuberosities. FINDINGS: VISUALIZED LUNG BASES: At the right lung base there is a calcified granuloma. Otherwise the visualized lung bases are grossly clear. There is no pleural effusion. ABDOMEN AND PELVIS: Evaluation of the solid organs and vasculature is limited without intravenous contrast. The liver, spleen, pancreas and adrenal glands are grossly normal in appearance. The gallbladder is normal. The kidneys are normal in appearance without focal mass, calcification or signs of hydronephrosis. Evaluation of the gastrointestinal tract is limited without oral contrast. The small and large bowel are not distended.The patient's normal appendix is identified in the right lower quadrant with gas in the lumen (coronal image 38). There is no gross retroperitoneal or mesenteric lymphadenopathy. The pelvic viscera is normal in appearance. The abdominal aorta and iliac arteries are normal in course and diameter. There are no sinister bone lesions. IMPRESSION: Normal noncontrast CT examination.
== END 2016-09-23 02:18 | disposition home or self-care (01) ==
LOC: ED 23:46
DX: R10.2 Pelvic and perineal pain (principal); R10.9 Unspecified abdominal pain
CPT/HCPCS: 36415; 74176; 80053; 81003; 81015; 83690; 84702; 85025; 86141; 99284

== ENCOUNTER 2016-09-24 12:45 | Emergency (ER) | payer SELFPAY ==
[2016-09-24] MEDS ORDERED: Ondansetron INJ* 2 MG/ML VIAL IV ONE (14:01)
[2016-09-24] MEDS ORDERED: Meclizine TAB* 12.5 MG PO ONE ×2 (14:01→21:38)
[2016-09-24] MEDS ORDERED: NS 0.9% 1000 ML* 1,000 ML IV SCH (14:15)
[2016-09-24] MEDS ORDERED: Iohexol 350* (CONTRAST) 500 ML MDV IV ONE (14:15)
[2016-09-24 14:33] LABS: Hematocrit 43 % (35-47); Mean Corpuscular HGB Conc 33 g/dl (31-36); Mean Corpuscular Hemoglobin 31 pg (27-31); Mean Corpuscular Volume 95 fL (80-97); Mean Platelet Volume 8 um3 (7.4-10.4); Red Blood Count 4.49 10^6/ul (4.0-5.4); Red Cell Distribution Width 13 % (10.5-15)
[2016-09-24 14:39] LABS: Urine Bacteria 1+ (Absent); Urine Bilirubin Negative (Negative); Urine Glucose Negative (Negative); Urine Nitrite Negative (Negative)
[2016-09-24 14:52] LABS: ALT 37 U/L (7-52); AST 22 U/L (13-39); Albumin 4.2 g/dL (3.2-5.2); Alkaline Phosphatase 34 U/L (34-104); Anion Gap 5 mmol/L (2-11); BUN/Creatinine Ratio 12.2 (8-20); Blood Urea Nitrogen 12 mg/dL (6-24); C Reactive Protein < 1.00 mg/L (< 5.00); CO2 Carbon Dioxide 29 mmol/L (22-32); Calcium 9.4 mg/dL (8.6-10.3); Chloride 104 mmol/L (101-111); EGFR African American 87.6 (>60); EGFR Non-African American 68.1 (>60); Globulin 2.6 g/dL (2-4); Glucose 92 mg/dL (70-100); Lipase 18 U/L (11.0-82.0); Magnesium 1.9 mg/dL (1.9-2.7); Sodium 138 mmol/L (133-145); Total Protein 6.8 g/dL (6.4-8.9)
[2016-09-24 15:22] LABS: TSH (Thyroid Stimulating Horm) 1.47 mcIU/mL (0.34-5.60)
--- NOTE | 2016-09-24 16:10 | CONS ---
CC: Dr. Paiz * NEUROLOGY CONSULTATION DATE OF CONSULT: 09/24/2016. Patient is in the emergency room. REFERRING PHYSICIAN: Dr. Varela. CHIEF COMPLAINT: Vertigo. HISTORY OF PRESENT ILLNESS: Una Swann is a 26-year-old woman who first presented to the hospital on 09/01/2016 with a bad headache and dizziness. 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 This was seen on MRI and MR venogram and also on CT angiogram and venogram. She was started on Lovenox and Warfarin. That has been adjusted as an outpatient and she is now just on Warfarin therapy. She was on oral contraceptives at the time of the cerebral vein thrombosis and that was stopped. She is a nonsmoker. There is no prior history of clots or clotting disorders. She had a work-up for a hypercoagulable state notable for a negative anti-cardiolipin antibodies, negative prothrombin gene test, normal PT, INR and PTT when she first presented, negative Lupus anticoagulant, normal protein C, protein S, and borderline low antithrombin III activity. She had a negative Factor V Leiden mutation. She was in her usual state of health and was developing problems with abdominal pain this past week. It would mainly occur with eating. She presented in the emergency room two days ago and had a CT of the abdomen and pelvis without contrast, interpreted as normal. She was having headaches when she first presented in early August and that resolved. She has not had any headaches in the last couple of days. She, about an hour before, presented to the emergency room today. She had had some abdominal pain and then developed dizziness. She feels like things are spinning. She had some dizziness when she presented initially back in early August, but she said that resolved. She has not noticed any change in her hearing or fullness in her ears or ear pain. She does not have any nausea or vomiting today. She says she has been eating and having bowel movements. She denies any change in vision, double vision or numbness of the face. She has not noticed any change in speech or numbness of the mouth or difficulty with swallowing. She has not noticed any numbness or incoordination in the limbs. She did feel unsteady walking when the dizziness started earlier today. When she was in the emergency room two days ago, INR was at 2.25. PAST MEDICAL HISTORY: Notable for good health. MEDICATIONS: Her only medications in early August were oral contraceptives. Currently, her only medication is Warfarin. She was on Lovenox earlier this month. PHYSICAL EXAM: She is well-nourished and well-hydrated. Temperature 90.0 temporally, blood pressure 126/92 standing and 116/73 lying, heart rate is running in the 60s and regular. Heart is in a regular rate and rhythm without murmurs. Lungs are clear. Neck is supple. Carotid pulses are symmetrical and there are no bruits. There is no cervical tenderness or masses palpated. Neurological exam: Pupils are equal, reacting from 5 down to about 2.5 mm. Funduscopic exam reveals nice sharp optic discs bilaterally. There are venous pulsations in the right eye, but not clearly in the left. There is no ptosis. Eye movements are normal without nystagmus. Visual dubon are full to confrontation. Facial musculature is symmetric. Facial sensation to light touch and temperature is symmetric. Tongue protrudes midline and speech is clear with a [place] accent. Hearing seems intact bilaterally. Motor exam: Reveals normal muscle strength in the upper and lower extremities. There is no drift of any of her limbs. [id number] maneuver is normal bilaterally. Cfeb-ce-adpv maneuver is normal bilaterally. Finger taps are normal bilaterally. Sensory exam to vibration and light touch is intact. Reflexes are hypoactive, but present in the limbs. Plantar responses are flexor. I did not attempt to ambulate her. IMPRESSION: Dizziness without other symptoms or signs in a patient with a right transverse sinus thrombosis. 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 She does not have any nystagmus or other abnormalities on her neurological exam currently. She is pending a CT of the brain to look for hemorrhages, as well as a CT angiogram and venogram. Her INR is pending as well, but it was normal just less than 48 hours ago. I am going to repeat her test for antiphospholipid and anti-cardiolipin antibodies. Sometimes they are intermittently positive. I spoke with Dr. Varela about evaluating her abdominal pain as a concern of hers understandably. I will follow her while she is here in the emergency room and subsequently. [id number]/[facility] #: [id number] [facility] HEALTH NETWORKBranden
--- NOTE | 2016-09-24 16:14 | RAD ---
INDICATION: Dizziness. Recent venous thrombosis. COMPARISON: No relevant prior exams available on the [facility] for comparison. TECHNIQUE: Multidetector CT images were obtained from the aortic arch to the vertex of the head with 80 mL Omnipaque 350 IV contrast. Arterial phase of enhancement. Multiplanar reformation including maximum intensity projection. 3-D arterial volume rendering. Stenosis estimations based on denominator of distal arterial diameter. NECK ANGIOGRAM REPORT: Normal configuration of the branch vessels at the aortic arch. Negative for atherosclerotic plaque, stenosis, occlusion, or dissection of the common or internal carotid arteries. Patent bilateral vertebral arteries with both contributing to the basilar artery. NECK ANGIOGRAM IMPRESSION: Negative CT angiogram of the carotid and vertebral arteries. HEAD ANGIOGRAM REPORT: Patent intracranial internal carotid arteries as well as the first and second segments of the middle cerebral arteries and first and second segments of the anterior cerebral arteries. Small patent anterior communicating artery visualized. Patent basilar artery and unremarkable cerebellar artery origins. Patent posterior cerebral arteries which are supplied by both the posterior circulation via P1 segments and anterior circulation via patent posterior communicating arteries. No intracranial aneurysm or vascular malformation evident. Patent dominant dural venous sinuses. Variant dominant LEFT sigmoid sinus and LEFT internal jugular vein. HEAD ANGIOGRAM IMPRESSION: Negative CT angiogram of the head. Patent dominant dural venous sinuses. CPT II: CPT II Codes: 3100F
[2016-09-24] MEDS ORDERED: Acetaminophen TAB* 325 MG PO ONE (18:23)
[2016-09-24] MEDS ORDERED: Iohexol 300* (CONTRAST) 10 ML SDV IV ONE (18:36)
--- NOTE | 2016-09-24 19:12 | RAD ---
INDICATION: Assess for abdominal venous thrombosis. History of dural venous sinus thrombosis. Anticoagulated. COMPARISON: September 23, [address] TECHNIQUE: Multidetector CT images were obtained from the lung bases to the ischial tuberosities with 97 mL Omnipaque 300 IV contrast. Portal venous and delayed systemic venous phase series. Multiplanar reformation. REPORT: Small calcified granuloma at the RIGHT lung base. Unremarkable liver. Patent superior mesenteric, splenic, and portal veins. Patent hepatic veins. Negative for CT abnormality of the gallbladder. Negative for biliary dilatation. Negative for CT abnormality of the pancreas or spleen. Negative for CT abnormality of the upper GI, small bowel, infra cecal appendix, or colon. Physiologic small volume of free pelvic fluid. Negative for free air or hernias. Normal adrenal glands. Unremarkable kidneys with symmetric nephrograms and pyelograms. Unremarkable ureters and urinary bladder. Normal-size anteverted uterus. Prominent parametrial veins with evidence for retrograde flow and dilatation of the LEFT gonadal vein. Negative for lymphadenopathy. Normal diameter abdominal aorta and iliac arteries. Physiologic increased distention of the inferior vena cava from the portal venous to the delayed phase series with subtle diffuse enhancement without suggestion of IVC or iliac vein thrombosis. Negative for suspicious osseous lesions. IMPRESSION: 1. No evidence for mesenteric vein thrombosis. No evidence for dominant systemic vein thrombosis. 2. Prominent parametrial veins with evidence for retrograde flow and dilatation of the LEFT gonadal vein. Consider pelvic congestion syndrome.
[2016-09-24] MEDS ORDERED: NS 0.9% 1000 ML* 1,000 ML IV ONE (19:31)
--- NOTE | 2016-09-24 21:46 | ED ---
Leeanna Rodriguez Auryana, scribed for Maciel Varela MD on 09/24/16 at 1401 . Dizziness - HPI Summary HPI Summary: 26 year old female presents with dizziness starting 1 hour ago. Patient reports that she was resting at the time of onset and characterizes the dizziness as spinning dizziness. Head movement makes the dizziness worse. She also reports left flank and central abdominal pain starting 6 days ago. She denies any fever , chills, rhinorrhea, ear pain, vision changes, nausea, headache, any neurological deficits, problems or burning with urination, hematuria, vaginal discharge, blood in stool, or any constipation. She reports normal BMs. LMP was 3 weeks ago - oral BC pills. Patient reports that she was admitted to [facility] a few weeks ago for right transverse sinus thrombus - symptoms dizziness and headache. PMHx is significant for right transverse sinus thrombus (on Coumadin) . No abdominal surgeries. - History Of Current Complaint Chief Complaint: EDAbdPain Stated Complaint: DIZZY/ABD PAIN Time Seen by Provider: 09/24/16 13:50 Hx Obtained From: Patient Onset/Duration: Still Present Timing: Hours - 1 hour ago Severity Initially: Mild Severity Currently: Mild Character: Head Spinning, Room Spinning Aggravating Factor(s): Position Change Associated Signs And Symptoms: Positive: Other: - abdominal pain. Negative: Nausea, Visual Changes, Blood In Stool - Allergies/Home Medications Allergies/Adverse Reactions: Allergies Allergy/AdvReac Type Severity Reaction Status Date / Time No Known Allergies Allergy Verified 09/24/16 13:52 Home Medications: Home Medications Warfarin TAB(*) [Coumadin TAB(*)] 8 mg PO DAILY 09/24/16 [History Confirmed ] PMH/Surg Hx/FS Hx/Imm Hx Endocrine/Hematology History: Denies: Hx Diabetes Cardiovascular History: Denies: Hx Hypertension, Hx Pacemaker/ICD History: Denies: Hx Renal Disease Sensory History: Denies: Hx Contacts or Glasses, Hx Hearing Aid Opthamlomology History: Denies: Hx Contacts or Glasses Psychiatric History: Denies: Hx Panic Disorder - Surgical History Surgery Procedure, Year, and Place: breast implants 4 years ago Infectious Disease History: Denies: Traveled Outside the [place] in Last 30 Days - Family History Known Family History: Positive: Blood Disorder - DVT , Other - No - aneurysm - Social History Occupation: Student Alcohol Use: None Substance Use Type: Reports: None Smoking Status (MU): Never Smoked Tobacco Review of Systems Positive: Other - dizziness. Negative: Fever, Chills Eyes: Negative Negative: Blurred Vision ENT: Negative Negative: Nasal Discharge Cardiovascular: Negative Respiratory: Negative Positive: Abdominal Pain. Negative: Nausea Genitourinary: Negative Positive: no symptoms reported. Negative: burning, dysuria, discharge, hematuria Musculoskeletal: Negative Skin: Negative Neurological: Negative Negative: Headache, Paresthesia, Numbness Psychological: Normal All Other Systems Reviewed And Are Negative: Yes Physical Exam - Summary Physical Exam Summary: General: mildly ill-appearing, no pain distress Skin: warm, color reflects adequate perfusion, dry Head: normal Eyes: EOMI, PA ENT: cerum in the right ear canal but otherwise normal. Neck: supple, nontender Respiratory: CTA, breath sounds present Cardiovascular: RRR Abdomen: soft, suprapubic, epigastric, and left flank tenderness. No RLQ or LLQ tenderness. Bowel: present Musculoskeletal: normal, strength/ROM intact Neurological: normal, sensory/motor intact, A&O x3 Psychological: affect/mood appropriate Triage Information Reviewed: Yes Vital Signs On Initial Exam: Initial Vitals Temp Pulse Resp BP Pulse Ox 98.0 F 70 20 123/84 100 09/24/16 12:47 09/24/16 12:47 09/24/16 12:47 09/24/16 12:47 09/24/16 12:47 Vital Signs Reviewed: Yes Diagnostics - Vital Signs Vital Signs Temp Pulse Resp BP Pulse Ox 09/24/16 12:47 98.0 F 70 20 123/84 100 - Laboratory Lab Results: Lab Results 09/24/16 09/24/16 09/24/16 Range/Units 13:53 14:22 14:22 WBC 7.0 (3.5-10.8) 10^3/ul RBC 4.49 (4.0-5.4) 10^6/ul Hgb 14.0 (12.0-16.0) g/dl Hct 43 (35-47) % MCV 95 (80-97) fL MCH 31 (27-31) pg MCHC 33 (31-36) g/dl RDW 13 (10.5-15) % Plt Count 201 (150-450) 10^3/ul MPV 8 (7.4-10.4) um3 Neut % (Auto) 61.0 (38-83) % Lymph % (Auto) 29.7 (25-47) % Scurry % (Auto) 7.1 (1-9) % Eos % (Auto) 1.4 (0-6) % Baso % (Auto) 0.8 (0-2) % Absolute Neuts (auto) 4.3 (1.5-7.7) 10^3/ul Absolute Lymphs (auto) 2.1 (1.0-4.8) 10^3/ul Absolute Monos (auto) 0.5 (0-0.8) 10^3/ul Absolute Eos (auto) 0.1 (0-0.6) 10^3/ul Absolute Basos (auto) 0.1 (0-0.2) 10^3/ul Absolute Nucleated RBC 0 10^3/ul Nucleated RBC % 0 INR (Anticoag Therapy) 2.36 H (0.89-1.11) APTT 40.9 H (26.0-36.3) seconds Sodium (133-145) mmol/L Potassium (3.5-5.0) mmol/L Chloride (101-111) mmol/L Carbon Dioxide (22-32) mmol/L Anion Gap (2-11) mmol/L BUN (6-24) mg/dL Creatinine (0.51-0.95) mg/dL Est GFR ( Amer) (>60) Est GFR (Non-Af Amer) (>60) BUN/Creatinine Ratio (8-20) Glucose (70-100) mg/dL Lactic Acid (0.5-2.0) mmol/L Calcium (8.6-10.3) mg/dL Magnesium (1.9-2.7) mg/dL Total Bilirubin (0.2-1.0) mg/dL AST (13-39) U/L ALT (7-52) U/L Alkaline Phosphatase (34-104) U/L C-Reactive Protein (< 5.00) mg/L Total Protein (6.4-8.9) g/dL Albumin (3.2-5.2) g/dL Globulin (2-4) g/dL Albumin/Globulin Ratio (1-3) Lipase (11.0-82.0) U/L TSH (0.34-5.60) mcIU/mL Beta HCG, Quant mIU/mL Urine Color Yellow Urine Appearance Cloudy Urine pH 7.0 (5-9) Ur Specific [place] 1.008 L (1.010-1.030) Urine Protein Negative (Negative) Urine Ketones Negative (Negative) Urine Blood Negative (Negative) Urine Nitrate Negative (Negative) Urine Bilirubin Negative (Negative) Urine Urobilinogen Negative (Negative) Ur Leukocyte Esterase Trace H (Negative) Urine WBC (Auto) Trace(0-5/hpf) (Absent) Urine RBC (Auto) Trace(0-2/hpf) (Absent) Ur Squamous Epith Cells Present H (Absent) Urine Bacteria 1+ H (Absent) Urine Glucose Negative (Negative) 09/24/16 09/24/16 Range/Units 14:22 14:22 WBC (3.5-10.8) 10^3/ul RBC (4.0-5.4) 10^6/ul Hgb (12.0-16.0) g/dl Hct (35-47) % MCV (80-97) fL MCH (27-31) pg MCHC (31-36) g/dl RDW (10.5-15) % Plt Count (150-450) 10^3/ul MPV (7.4-10.4) um3 Neut % (Auto) (38-83) % Lymph % (Auto) (25-47) % Scurry % (Auto) (1-9) % Eos % (Auto) (0-6) % Baso % (Auto) (0-2) % Absolute Neuts (auto) (1.5-7.7) 10^3/ul Absolute Lymphs (auto) (1.0-4.8) 10^3/ul Absolute Monos (auto) (0-0.8) 10^3/ul Absolute Eos (auto) (0-0.6) 10^3/ul Absolute Basos (auto) (0-0.2) 10^3/ul Absolute Nucleated RBC 10^3/ul Nucleated RBC % INR (Anticoag Therapy) (0.89-1.11) APTT (26.0-36.3) seconds Sodium 138 (133-145) mmol/L Potassium 4.0 (3.5-5.0) mmol/L Chloride 104 (101-111) mmol/L Carbon Dioxide 29 (22-32) mmol/L Anion Gap 5 (2-11) mmol/L BUN 12 (6-24) mg/dL Creatinine 0.98 H (0.51-0.95) mg/dL Est GFR ( Amer) 87.6 (>60) Est GFR (Non-Af Amer) 68.1 (>60) BUN/Creatinine Ratio 12.2 (8-20) Glucose 92 (70-100) mg/dL Lactic Acid 0.9 (0.5-2.0) mmol/L Calcium 9.4 (8.6-10.3) mg/dL Magnesium 1.9 (1.9-2.7) mg/dL Total Bilirubin 0.30 (0.2-1.0) mg/dL AST 22 (13-39) U/L ALT 37 (7-52) U/L Alkaline Phosphatase 34 (34-104) U/L C-Reactive Protein < 1.00 (< 5.00) mg/L Total Protein 6.8 (6.4-8.9) g/dL Albumin 4.2 (3.2-5.2) g/dL Globulin 2.6 (2-4) g/dL Albumin/Globulin Ratio 1.6 (1-3) Lipase 18 (11.0-82.0) U/L TSH 1.47 (0.34-5.60) mcIU/mL Beta HCG, Quant 0.61 mIU/mL Urine Color Urine Appearance Urine pH (5-9) Ur Specific [place] (1.010-1.030) Urine Protein (Negative) Urine Ketones (Negative) Urine Blood (Negative) Urine Nitrate (Negative) Urine Bilirubin (Negative) Urine Urobilinogen (Negative) Ur Leukocyte Esterase (Negative) Urine WBC (Auto) (Absent) Urine RBC (Auto) (Absent) Ur Squamous Epith Cells (Absent) Urine Bacteria (Absent) Urine Glucose (Negative) Result Diagrams: 09/24/16 14:22 09/24/16 14:22 Lab Statement: Any lab studies that have been ordered have been reviewed, and results considered in the medical decision making process. - CT CTA HEAD CT Interpretation: No Acute Changes - HEAD ANGIOGRAM IMPRESSION: Negative CT angiogram of the head. Patent dominant dural venous sinuses. CT Interpretation Completed By: Radiologist ABD/PEL CT Interpretation: Positive (See Comments) - IMPRESSION: 1. No evidence for mesenteric vein thrombosis. No evidence for dominant systemic vein thrombosis. 2. Prominent parametrial veins with evidence for retrograde flow and dilatation of the LEFT gonadal vein. Consider pelvic congestion syndrome. CT Interpretation Completed By: Radiologist Dizzy Course/Dx - Course Course Of Treatment: NO CRITICAL CARE TIME. DR BUTTERFIELD, NEUROLOGY, SAW PATIENT IN ED. DIZZINESS IMPROVED SOME WITH MECLIZINE. CTA/LABS REVIEWED WITH PATIENT/ /DR BUTTERFIELD. THE PLAN IS TO TREAT WITH MECLIZINE, CONTINUE THE COUMADIN , F/U PMD. PHOSPHOLIPID IGG/IGM AND CARDIOLIPIN IGG/IGM RECHECKED. - Diagnoses Provider Diagnoses: Vertigo, Dizziness, Cerebral venous sinus thrombosis - Provider Notifications Discussed Care Of Patient With: Coleman Butterfield Time Discussed With Above Provider: 13:59 - Spoke with Dr. Rodarte (21:15) Instructed by Provider To: MD Will See In ED Discharge - Discharge Plan Condition: Stable Disposition: HOME Prescriptions: Meclizine HCl [Meclizine 25] 25 mg PO Q6HR PRN #20 tab PRN Reason: Dizziness Patient Education Materials: Vertigo (ED), Dizziness (ED) Referrals: Timoteo Martinez MD [Primary Care Provider] - 2 Days Additional Instructions: FOLLOW UP WITH YOUR DOCTOR. CONTINUE THE COUMADIN DIRECTED. YOUR PHOSPHOLIPID IGG/IGM AND CARDIOLIPIN IGG/IGM HAVE BEEN RECHECKED. RETURN TO THE EMERGENCY DEPARTMENT FOR ANY WORSENING OF YOUR CONDITION OR QUESTIONS OR CONCERNS. The documentation as recorded by the Leeanna stratton Auryana accurately reflects the service I personally performed and the decisions made by me, Maciel Varela MD.
[2016-09-24 21:55] VITALS: BP 104/71
== END 2016-09-24 22:03 | disposition home or self-care (01) ==
LOC: ED 12:45
DX: R42 Dizziness and giddiness (principal)
CPT/HCPCS: 36415; 70496; 70498; 74177; 80053; 81003; 81015; 83605; 83690; 83735; 84443; 84702; 85025; 85610; 85730; 86140; 86147; 87086; 96360; 96374; 99284; A9270-GY; J2405; Q9967